=== PATIENT | female | born 1960 | race Caucasian/White ===

== ENCOUNTER 2016-05-26 07:02 | Inpatient (IN) | payer BC ==
[~2016-05-26] VITALS: Ht 162.6 cm; Wt 68.9 kg
[2016-05-26] MEDS ORDERED: VENL75CA47 (07:19)
[2016-05-26] MEDS ORDERED: ATEN50TA2 (07:19)
[2016-05-26] MEDS ORDERED: SUMA25TA3 (07:19)
[2016-05-26] MEDS ORDERED: LISI40TAB (07:19)
[2016-05-26] MEDS ORDERED: CHLO125TA (07:19)
[2016-05-26] MEDS ORDERED: HYDR-3713 (07:19)
[2016-05-26] MEDS ORDERED: TRIC145T (07:19)
[2016-05-26] MEDS ORDERED: PREM.6256 (07:19)
[2016-05-26] MEDS ORDERED: ALEN70TA39 (07:19)
[2016-05-26] MEDS ORDERED: ZANA4CAP (07:19)
[2016-05-26] MEDS ORDERED: ATOR1TAB21 (07:19)
[2016-05-26] MEDS ORDERED: NS 1,000 ML IV SCH (07:35)
[2016-05-26] MEDS ORDERED: ONDANSETRON 4MG/2ML VIAL (J2405) IV ONE (07:45)
[2016-05-26] MEDS: MORPHINE 4 MG/ML 1ML SYRINGE IV PRN ×2 (08:12→11:15)
[2016-05-26 08:15] LABS: BASO % 0.1 % (0.0-1.0); EOS # 0.1 K/mm3 (0.0-0.50); EOS % 0.5 % (0.0-3.0); LARGE UNSTAINED CELL # 0.1 K/mm3 (0.0-0.4); LARGE UNSTAINED CELL % 0.6 % (0.0-4.0); LYMPH # 1.3 K/mm3 (1.5-4.5); MEAN CORPUSCULAR HEMOGLOBIN 29.3 pg (27.0-33.0); MEAN CORPUSCULAR HGB CONC 33.1 g/dl (32.0-36.5); MEAN CORPUSCULAR VOLUME 88.5 fl (80.0-96.0); MONO # 0.4 K/mm3 (0.0-0.8); MONO % 3.4 % (0.0-5.0); NEUTROPHILS # 10.5 K/mm3 (1.8-7.7); NEUTROPHILS % 85.4 % (36.0-66.0); PLATELET COUNT, AUTOMATED 469 k/mm3 (150-450); RED CELL DISTRIBUTION WIDTH 13.8 % (11.5-14.5); WHITE BLOOD COUNT 12.3 K/mm3 (4.0-10.0)
[2016-05-26 08:33] LABS: ALBUMIN 3.9 GM/DL (3.2-5.2); ALBUMIN/GLOBULIN RATIO 0.95 (1.00-1.93); BILIRUBIN,DIRECT 0.3 MG/DL (0.0-0.2); BILIRUBIN,TOTAL 0.8 MG/DL (0.2-1.0); CALCIUM LEVEL 8.7 MG/DL (8.5-10.1); CREATININE FOR GFR 1.03 MG/DL (0.55-1.02); GLOMERULAR FILTRATION RATE 58.6 (>51); POTASSIUM SERUM 3.4 MEQ/L (3.5-5.1)
[2016-05-26] MEDS ORDERED: ISOVUE-370 76% 100ML VIAL (Q9967) As Ordered ONE (08:56)
--- NOTE | 2016-05-26 09:41 | REP ---
CT study of the abdomen and pelvis with IV but without oral contrast: History: Abdominal pain. CT contrast dose: 100 mL of Isovue [address] findings: Preliminary digital medical record technician radiograph is unremarkable. The lung bases are free of infiltrate. There is some linear fibrosis versus discoid atelectasis in the lingula. No pleural effusion is seen. There is mild to moderate diffuse fatty infiltration of the liver. There is a 9 mm low density area in the left lobe of the liver compatible with a cyst. No other focal liver lesion is seen. The liver is at the upper range of normal in size with a craniocaudal span of 16.1 cm. The spleen is normal in appearance. No adrenal lesion is seen. No pancreatic abnormalities observed. Gallbladder is unremarkable. The kidneys enhance symmetrically are morphologically intact. Small and large intestinal bowel loops are normal in the upper abdomen. Pelvic images demonstrate an inflammatory process in the right lower quadrant surrounding the appendix which is enlarged. There is periappendiceal inflammation. There is a small quantity of fluid in the right pericolic gutter. No abscess or free air. Findings are compatible with acute appendicitis. There is no visible appendicolith. No uterine or adnexal abnormality is appreciated. The inflammation does extend down to the level of the ovary on the right side. Urinary bladder is intact. No acute bony abnormality is seen. There is perineural cyst formation in the body of the sacrum with expansion and remodeling of the sacral canal as a result as a normal variant. 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 Impression: CT findings consistent with acute appendicitis. No free air or abscess. Periappendiceal inflammation and a small quantity of a right pericolic gutter fluid are noted. Signed by Favio Garcia MD 05/26/2016 10:18 A
[2016-05-26] MEDS ORDERED: MORPHINE 4 MG/ML 1ML SYRINGE IV ONE (09:45)
[2016-05-26] MEDS ORDERED: PIPERACILLIN/TAZOBACTAM SOD 3.375 GM in D5W MINI-BAG PLUS 50 ML IV ONE (09:45)
[2016-05-26] MEDS ORDERED: ALEN70TA39 PO (10:16)
[2016-05-26] MEDS ORDERED: NORC5TAB PO (10:16)
[2016-05-26] MEDS ORDERED: ATEN50TA2 PO (10:16)
[2016-05-26] MEDS ORDERED: LISI40TAB PO (10:19)
[2016-05-26] MEDS ORDERED: TRIC145T PO (10:19)
[2016-05-26] MEDS ORDERED: CHLO125TA PO (10:19)
[2016-05-26] MEDS ORDERED: PREM.6256 PO (10:19)
[2016-05-26] MEDS ORDERED: VENL75TA3 PO (10:19)
[2016-05-26] MEDS ORDERED: SUMA25TA3 PO (10:19)
[2016-05-26] MEDS ORDERED: ATOR1TAB21 PO (10:19)
[2016-05-26] MEDS ORDERED: BIOT10005 PO (10:20)
[2016-05-26] MEDS ORDERED: VITMTA PO (10:20)
[2016-05-26] MEDS ORDERED: FISH1000 PO (10:20)
[2016-05-26] MEDS ORDERED: BUPIVACAINE HCL 0.25% 30 ML VIAL As Ordered ONE (13:06)
[2016-05-26] MEDS ORDERED: LR 1,000 ML IV SCH ×2 (13:45→16:00)
[2016-05-26 14:00] VITALS: BP 142/76
[2016-05-26] MEDS ORDERED: PIPERACILLIN/TAZOBACTAM SOD 2.25 GM in D5W MINI-BAG PLUS 50 ML IV ONE (14:00)
[2016-05-26] MEDS ORDERED: NEOSTIGMINE 1MG/ML 5 ML SYRINGE (J2710) As Ordered ONE (14:29)
[2016-05-26] MEDS ORDERED: MIDAZOLAM INJ 2 MG/2 ML VIAL (J2250) As Ordered ONE (14:29)
[2016-05-26] MEDS ORDERED: dexameTHASONE 4 MG/ML 1ML VIAL (J1100) As Ordered ONE (14:29)
[2016-05-26] MEDS ORDERED: GLYCOPYRROLATE INJ 0.2 MG/ML 2 ML VIAL As Ordered ONE (14:29)
[2016-05-26] MEDS ORDERED: LIDOCAINE 2% INJ 100 MG/5 ML SDV (FOR ANES.) As Ordered ONE (14:29)
[2016-05-26] MEDS ORDERED: LABETALOL HCL 100 MG/20 ML VIAL As Ordered ONE (14:29)
[2016-05-26] MEDS ORDERED: KETOROLAC 60 MG/2 ML VIAL (J1885) As Ordered ONE (14:29)
[2016-05-26] MEDS ORDERED: PROPOFOL 200 MG/20 ML VIAL As Ordered ONE (14:29)
[2016-05-26] MEDS ORDERED: ONDANSETRON 4MG/2ML VIAL (J2405) As Ordered ONE (14:29)
[2016-05-26] MEDS ORDERED: ROCURONIUM BROMIDE 50 MG/5 ML VIAL As Ordered ONE ×2 (14:29→15:07)
[2016-05-26] MEDS ORDERED: fentaNYL 250 MCG/5 ML INJECTION (J3010) As Ordered ONE (14:29)
[2016-05-26] MEDS ORDERED: fentaNYL 100 MCG/2 ML INJECTION (J3010) As Ordered ONE (15:10)
[2016-05-26] MEDS ORDERED: KETOROLAC 30 MG/ML VIAL (J1885) As Ordered ONE (15:56)
[2016-05-26] MEDS: LR 1,000 ML IV SCH (16:00)
[2016-05-26] MEDS ORDERED: fentaNYL 100 MCG/2 ML INJECTION (J3010) IV PRN (16:00)
[2016-05-26] MEDS ORDERED: ONDANSETRON 4MG/2ML VIAL (J2405) IV PRN ×2 (16:00→16:15)
[2016-05-26] MEDS ORDERED: PERCOCET 5MG/325MG TAB PO PRN (16:00)
[2016-05-26] MEDS: KETOROLAC 30 MG/ML VIAL (J1885) IV PRN ×2 (16:03→16:50)
[2016-05-26] MEDS ORDERED: ACETAMINOPHEN TAB 650MG DOSE (2X325MG) PO PRN (16:15)
[2016-05-26] MEDS ORDERED: NORCO, ANEXSIA 5/325MG TABLET (HYDROcodone/ACETAMINOPHEN) PO PRN (16:15)
[2016-05-26] MEDS: NORCO, ANEXSIA 5/325MG TABLET (HYDROcodone/ACETAMINOPHEN) PO PRN (17:43)
[2016-05-26] MEDS: PIPERACILLIN/TAZOBACTAM SOD 3.375 GM in D5W MINI-BAG PLUS 50 ML IV SCH (20:21)
[2016-05-26] MEDS: MORPHINE 2 MG/ML 1ML SYRINGE IV PRN (20:21)
[2016-05-26 22:00] VITALS: BP 124/66
[2016-05-26] MEDS: LISINOPRIL 40 MG TAB PO SCH (22:05)
[2016-05-26] MEDS: ATENOLOL 25 MG TAB PO SCH (22:05)
[2016-05-27] MEDS: ENOXAPARIN 40 MG/0.4 ML SYRINGE (J1650) SC SCH (00:47)
[2016-05-27 02:00] VITALS: BP 108/62
[2016-05-27] MEDS: LR 1,000 ML IV SCH ×2 (02:00→10:37)
[2016-05-27] MEDS: KETOROLAC 30 MG/ML VIAL (J1885) IV PRN ×2 (02:31→09:09)
[2016-05-27] MEDS: PIPERACILLIN/TAZOBACTAM SOD 3.375 GM in D5W MINI-BAG PLUS 50 ML IV SCH ×4 (02:32→20:26)
[2016-05-27 06:00] VITALS: BP 102/50
[2016-05-27 06:54] LABS: BASO % 0.1 % (0.0-1.0); EOS # 0.1 K/mm3 (0.0-0.50); EOS % 0.9 % (0.0-3.0); LARGE UNSTAINED CELL # 0.1 K/mm3 (0.0-0.4); LARGE UNSTAINED CELL % 1.2 % (0.0-4.0); LYMPH # 1.6 K/mm3 (1.5-4.5); LYMPH % 14.6 % (24.0-44.0); MEAN CORPUSCULAR HEMOGLOBIN 29.3 pg (27.0-33.0); MEAN CORPUSCULAR HGB CONC 33.6 g/dl (32.0-36.5); MEAN CORPUSCULAR VOLUME 87.1 fl (80.0-96.0); MONO # 0.3 K/mm3 (0.0-0.8); MONO % 3.3 % (0.0-5.0); NEUTROPHILS # 8.1 K/mm3 (1.8-7.7); PLATELET COUNT, AUTOMATED 447 k/mm3 (150-450); RED CELL DISTRIBUTION WIDTH 13.7 % (11.5-14.5); WHITE BLOOD COUNT 10.2 K/mm3 (4.0-10.0)
[2016-05-27 07:06] LABS: CALCIUM LEVEL 8.1 MG/DL (8.5-10.1); CREATININE FOR GFR 1.09 MG/DL (0.55-1.02); GLOMERULAR FILTRATION RATE 54.9 (>51); POTASSIUM SERUM 3.5 MEQ/L (3.5-5.1)
[2016-05-27] MEDS: NORCO, ANEXSIA 5/325MG TABLET (HYDROcodone/ACETAMINOPHEN) PO PRN ×4 (07:57→21:53)
[2016-05-27] MEDS: MORPHINE 2 MG/ML 1ML SYRINGE IV PRN ×3 (11:06→21:20)
[2016-05-27 14:00] VITALS: BP 133/62
[2016-05-27 16:25] VITALS: BP 137/79
[2016-05-27 20:00] VITALS: BP 138/76
[2016-05-27 20:27] VITALS: BP 138/76
[2016-05-27] MEDS: LISINOPRIL 40 MG TAB PO SCH (20:27)
[2016-05-27] MEDS: ATENOLOL 25 MG TAB PO SCH (20:27)
[2016-05-28] VITALS: BP 98/57
[2016-05-28] MEDS: PIPERACILLIN/TAZOBACTAM SOD 3.375 GM in D5W MINI-BAG PLUS 50 ML IV SCH ×3 (01:29→14:20)
[2016-05-28] MEDS: ENOXAPARIN 40 MG/0.4 ML SYRINGE (J1650) SC SCH (01:29)
[2016-05-28] MEDS: NORCO, ANEXSIA 5/325MG TABLET (HYDROcodone/ACETAMINOPHEN) PO PRN ×3 (02:33→16:11)
[2016-05-28 04:00] VITALS: BP 136/71
[2016-05-28 07:01] LABS: BASO % 0.3 % (0.0-1.0); EOS # 0.2 K/mm3 (0.0-0.50); LARGE UNSTAINED CELL # 0.1 K/mm3 (0.0-0.4); LARGE UNSTAINED CELL % 2.2 % (0.0-4.0); LYMPH # 2.2 K/mm3 (1.5-4.5); LYMPH % 36.2 % (24.0-44.0); MEAN CORPUSCULAR HEMOGLOBIN 28.5 pg (27.0-33.0); MEAN CORPUSCULAR HGB CONC 33.5 g/dl (32.0-36.5); MEAN CORPUSCULAR VOLUME 85.3 fl (80.0-96.0); MONO # 0.3 K/mm3 (0.0-0.8); MONO % 4.8 % (0.0-5.0); NEUTROPHILS # 3.2 K/mm3 (1.8-7.7); NEUTROPHILS % 52.5 % (36.0-66.0); PLATELET COUNT, AUTOMATED 456 k/mm3 (150-450); RED CELL DISTRIBUTION WIDTH 13.6 % (11.5-14.5); WHITE BLOOD COUNT 6.1 K/mm3 (4.0-10.0)
[2016-05-28 08:00] VITALS: BP 128/68
--- NOTE | 2016-05-28 08:47 | RO ---
DATE OF PROCEDURE: 05/26/2016 PREOPERATIVE DIAGNOSIS: Appendicitis with probable perforation. POSTOPERATIVE DIAGNOSIS: Perforated appendicitis with abscess. PROCEDURE PERFORMED: Laparoscopic appendectomy. SURGEON: Dr. Spencer Sauceda ANESTHESIA: General. INDICATIONS FOR PROCEDURE: The patient is a 56-year-old woman who presented to the emergency department with a history of mid to lower abdominal pain. This had become acutely worse on the morning of the . She was seen in the emergency department where she was found to have a white blood cell count of approximately 12,000 with a left shift. She had a CT scan obtained which showed some free fluid in the lower abdomen and pelvis with changes consistent with appendicitis. She had fairly diffuse tenderness across the lower quadrants, though the right may have been somewhat worse than the left. She has appendicitis, possibly perforated, and is now for laparoscopic appendectomy. DESCRIPTION OF PROCEDURE: The patient was placed on the operating table in the supine position. She was placed under general endotracheal anesthesia. The patient's abdomen was prepped and draped in a sterile fashion. 0.25% Marcaine was infiltrated at her trocar sites. A short supraumbilical midline incision was made and deepened through the subcutaneous tissues and fascia. The peritoneum was opened bluntly. On opening the peritoneum, there appeared to be a small amount of turbid fluid present and anaerobic and aerobic swabs were obtained for culture and Gram stain. A Radha cannula was inserted and the abdomen was insufflated with carbon dioxide gas. The laparoscope was placed. Initial examination showed some free fluid lateral to the right lobe of the liver. This appeared to be cloudy and yellowish in color. There was also some exudate noted in the right lower quadrant at the lateral abdominal wall. There were some filmy inflammatory adhesions between some omentum and the anterolateral abdominal wall. A 5 mm trocar was placed in the low midline and a second 5 mm trocar was placed in the left lower quadrant. Graspers were inserted. The patient was tilted to a Trendelenburg position and rolled to the left. The inflammatory adhesions in the lower abdomen were broken apart using the graspers. A small abscess was identified just inferior to the cecum. This was quite small, probably no more than 2 mL of purulence were released. This was suctioned and the area irrigated using the suction glaze carrier. As additional adhesions were broken apart and the abscess opened, the inflamed appendix was identified coursing inferiorly from the cecum toward the pelvic brim. The inflammatory attachments were broken apart bluntly and the appendix elevated. The mesoappendix was divided using the electrocautery with care to cauterize any vessels. The base of the appendix at its juncture with the cecum was clearly identified and cleared of overlying fibrofatty tissue. The appendix was removed using a firing of an endoscopic 45 mm linear cutter stapler with a green load. The appendix was placed in an Endopouch. The right lower quadrant was copiously irrigated. The patient was then tilted to a reverse Trendelenburg position and the fluid around the liver and in the upper abdomen in the subhepatic space was all irrigated till clear. The fluid drained toward the pelvis and this was all then removed with the suction. The patient was then tilted to a Trendelenburg position to allow better clearing of the fluid from the pelvis. Once the irrigation fluid had all been returned and there was no evidence of any residual fluid, the patient was placed supine. The abdomen was deflated and the trocars were removed. The appendix was recovered through the Shoemaker site. The fascia at the Shoemaker site was closed with interrupted simple sutures of #2-0 Vicryl. The skin incisions were closed with #5-0 Vicryl and Steri-Strips. Light dressings were applied. The patient tolerated the procedure well without apparent complication. She was awakened in the operating room, extubated and moved to the recovery room in stable condition. FIORELLA
[2016-05-28] MEDS: MORPHINE 2 MG/ML 1ML SYRINGE IV PRN (09:55)
[2016-05-28 12:00] VITALS: BP 154/88
[2016-05-28 16:00] VITALS: BP 160/84
[2016-05-28] MEDS ORDERED: NORCOTAB PO (19:30)
[2016-05-28] MEDS ORDERED: METR500T10 PO (19:30)
[2016-05-28] MEDS ORDERED: CIPR500T3 PO (19:30)
[2016-05-28 20:00] VITALS: BP 158/73
== END 2016-05-28 20:25 | disposition home or self-care (01) | DRG 225 ==
LOC: M ED 08:29 → M SDC 12:49 → M ED INP 12:50 → M MS5PR 12:50 → M PED 05-27 16:25
PROVIDERS: ADMIT Surgery; ATTEND Surgery
PROC: 0DTJ4ZZ Resection of Appendix, Percutaneous Endoscopic Approach (ICD-10-PCS; principal; 2016-05-26 12:54)
DX: K35.3 Acute appendicitis with localized peritonitis (principal); I10 Essential (primary) hypertension; E78.00 Pure hypercholesterolemia, unspecified; G43.909 Migraine, unspecified, not intractable, without status migrainosus; K59.00 Constipation, unspecified; M54.9 Dorsalgia, unspecified; F32.9 Major depressive disorder, single episode, unspecified; Z79.891 Long term (current) use of opiate analgesic; Z88.5 Allergy status to narcotic agent; Z91.048 Other nonmedicinal substance allergy status; Z87.891 Personal history of nicotine dependence; Z79.899 Other long term (current) drug therapy

== ENCOUNTER → 2016-08-07 | Outpatient (REF) | payer BC ==
[~2016-08-07] MED LIST: ALEN70TA39; ALEN70TA39 PO; ATEN50TA2; ATEN50TA2 PO; ATOR1TAB21; ATOR1TAB21 PO; BIOT10005 PO; CHLO125TA; CHLO125TA PO; CIPR500T3 PO; FISH1000 PO; HYDR-3713; LISI40TAB; LISI40TAB PO; METR500T10 PO; NORC1TAB4 PO; NORCOTAB PO; PREM.6256; PREM.6256 PO; SUMA25TA3; SUMA25TA3 PO; TRIC145T; TRIC145T PO; VENL75CA47; VENL75TA3 PO; VITMTA PO; ZANA4CAP
[2016-08-07 17:31] LABS: BLOOD UREA NITROGEN 11 MG/DL (7-18); CHOLESTEROL LEVEL 143 MG/DL (<200); GLOMERULAR FILTRATION RATE > 60.0 (>51); TRIGLYCERIDES LEVEL 125 MG/DL (<150)
== END ==
LOC: M SFHCCLAY 10:31
PROVIDERS: ATTEND Nurse Practitioner Family
DX: M54.9 Dorsalgia, unspecified (principal); E78.4 Other hyperlipidemia; E55.9 Vitamin D deficiency, unspecified

== ENCOUNTER → 2016-12-18 | Outpatient (REF) | payer BC ==
[~2016-12-18] MED LIST changes: -BIOT10005 PO; +BIOT10008 PO; +METR1TAB66 PO; -METR500T10 PO; -TRIC145T; -TRIC145T PO; +TRIC145T22; +TRIC145T22 PO
== END ==
LOC: M SFHCCLAY 09:08
PROVIDERS: ATTEND Nurse Practitioner Family
DX: E78.4 Other hyperlipidemia (principal); E55.9 Vitamin D deficiency, unspecified

== ENCOUNTER → 2017-03-26 | Outpatient (REF) | payer BC ==
[2017-03-26 11:48] LABS: HEMATOCRIT 35.6 % (36.0-47.0); MEAN CORPUSCULAR HEMOGLOBIN 28.8 pg (27.0-33.0); MEAN CORPUSCULAR HGB CONC 33.7 g/dl (32.0-36.5); MEAN CORPUSCULAR VOLUME 85.6 fl (80.0-96.0); PLATELET COUNT, AUTOMATED 502 10^3/uL (150-450); RED BLOOD COUNT 4.16 10^6/uL (4.00-5.40); RED CELL DISTRIBUTION WIDTH 14.8 % (11.5-14.5); WHITE BLOOD COUNT 7.5 10^3/uL (4.0-10.0)
[2017-03-26 12:30] LABS: ALBUMIN 4.3 GM/DL (3.2-5.2); ALBUMIN/GLOBULIN RATIO 1.43 (1.00-1.93); ALKALINE PHOSPHATASE 34 U/L (45-117); ALT/SGPT 17 U/L (12-78); ANION GAP 10 MEQ/L (8-16); AST/SGOT 14 U/L (7-37); BILIRUBIN,TOTAL 0.4 MG/DL (0.2-1.0); BLOOD UREA NITROGEN 13 MG/DL (7-18); CALCIUM LEVEL 9.1 MG/DL (8.5-10.1); CARBON DIOXIDE LEVEL 24 MEQ/L (21-32); CHLORIDE LEVEL 106 MEQ/L (98-107); CHOLESTEROL LEVEL 152 MG/DL (<200); CHOLESTEROL RISK RATIO 4.108 (<5); CREATININE FOR GFR 1.08 MG/DL (0.55-1.02); GLOMERULAR FILTRATION RATE 55.3 (>51); GLUCOSE, FASTING 98 MG/DL (70-105); HDL CHOLESTEROL 37 MG/DL (>40); LDL CHOLESTEROL 83.6 MG/DL (<100); NON-HDL-C 115 MG/DL; SODIUM LEVEL 140 MEQ/L (136-145); TOTAL PROTEIN 7.3 GM/DL (6.4-8.2); TRIGLYCERIDES LEVEL 157 MG/DL (<150)
[2017-03-26 13:31] LABS: TOTAL 25(OH) VITAMIN D 30.8 NG/ML (30.0-100.0)
== END ==
LOC: M SFHCCLAY 09:38
DX: I10 Essential (primary) hypertension (principal); E78.4 Other hyperlipidemia; E55.9 Vitamin D deficiency, unspecified
CPT/HCPCS: 80053

== ENCOUNTER → 2018-04-02 | Outpatient (REF) | payer BC ==
[~2018-04-02] MED LIST changes: -ALEN70TA39; -ALEN70TA39 PO; +ALEN70TA57; +ALEN70TA57 PO; +LISI40TA; +LISI40TA PO; -LISI40TAB; -LISI40TAB PO; +METR-201 PO; -METR1TAB66 PO
[2018-04-02 13:18] LABS: HEMATOCRIT 36.9 % (36.0-47.0); HEMOGLOBIN 12.4 g/dl (12.0-15.5); MEAN CORPUSCULAR HEMOGLOBIN 28.6 pg (27.0-33.0); MEAN CORPUSCULAR HGB CONC 33.6 g/dl (32.0-36.5); PLATELET COUNT, AUTOMATED 468 10^3/uL (150-450); RED BLOOD COUNT 4.34 10^6/uL (4.00-5.40); WHITE BLOOD COUNT 6.5 10^3/uL (4.0-10.0)
[2018-04-02 13:32] LABS: CALCIUM LEVEL 9.4 MG/DL (8.8-10.2); CREATININE FOR GFR 1.1 MG/DL (0.55-1.30); GLOMERULAR FILTRATION RATE 53.9 (>45); POTASSIUM SERUM 3.4 MEQ/L (3.5-5.1)
[2018-04-02 13:33] LABS: ALBUMIN 3.8 GM/DL (3.2-5.2); BILIRUBIN,TOTAL 0.3 MG/DL (0.2-1.0); CHOLESTEROL RISK RATIO 4.413 (<5); THYROID STIMULATING HORMONE 1.42 uIU/ML (0.358-3.740); TOTAL PROTEIN 6.9 GM/DL (6.4-8.2)
== END ==
LOC: M SFHCCLAY 07:05
PROVIDERS: ATTEND Nurse Practitioner Family
DX: I10 Essential (primary) hypertension (principal); E78.49 Other hyperlipidemia; F32.9 Major depressive disorder, single episode, unspecified; E55.9 Vitamin D deficiency, unspecified; Z79.01 Long term (current) use of anticoagulants

== ENCOUNTER → 2019-05-19 | Outpatient (REF) | payer BC ==
[~2019-05-19] MED LIST changes: -ALEN70TA57; -ALEN70TA57 PO; +ALEN70TA74; +ALEN70TA74 PO; +HYDR-3715 PO; -METR-201 PO; +METR-265 PO; -NORC1TAB4 PO; +NORC1TAB7 PO; -NORCOTAB PO; +VENL-65 PO; -VENL75TA3 PO
[2019-05-19 16:26] LABS: HEMATOCRIT 36.7 % (36.0-47.0); HEMOGLOBIN 12.4 g/dl (12.0-15.5); MEAN CORPUSCULAR HEMOGLOBIN 29.3 pg (27.0-33.0); MEAN CORPUSCULAR HGB CONC 33.8 g/dl (32.0-36.5); MEAN CORPUSCULAR VOLUME 86.8 fl (80.0-96.0); PLATELET COUNT, AUTOMATED 432 10^3/uL (150-450); RED BLOOD COUNT 4.23 10^6/uL (4.00-5.40); WHITE BLOOD COUNT 6.2 10^3/uL (4.0-10.0)
[2019-05-19 16:41] LABS: ALBUMIN 4.2 GM/DL (3.2-5.2); ALT/SGPT 17 U/L (12-78); BILIRUBIN,TOTAL 0.3 MG/DL (0.2-1.0); BLOOD UREA NITROGEN 16 MG/DL (7-18); CALCIUM LEVEL 9.2 MG/DL (8.8-10.2); CARBON DIOXIDE LEVEL 28 MEQ/L (21-32); CHLORIDE LEVEL 105 MEQ/L (98-107); CHOLESTEROL LEVEL 140 MG/DL (<200); CHOLESTEROL RISK RATIO 4.242 (<5); CREATININE FOR GFR 0.98 MG/DL (0.55-1.30); GLOMERULAR FILTRATION RATE > 60.0 (>45); GLUCOSE, FASTING 103 MG/DL (70-100); HDL CHOLESTEROL 33 MG/DL (>40); LDL CHOLESTEROL 84 MG/DL (<100); NON-HDL-C 107 MG/DL; SODIUM LEVEL 140 MEQ/L (136-145); TOTAL PROTEIN 7.1 GM/DL (6.4-8.2); TRIGLYCERIDES LEVEL 117 MG/DL (<150)
== END ==
LOC: M SFHCCLAY 10:06
PROVIDERS: ATTEND Nurse Practitioner Family
DX: E78.49 Other hyperlipidemia (principal); I10 Essential (primary) hypertension; E55.9 Vitamin D deficiency, unspecified

== ENCOUNTER → 2020-07-19 | Outpatient (REF) | payer BC ==
[~2020-07-19] MED LIST changes: -ALEN70TA74; -ALEN70TA74 PO; +ALEN70TA82; +ALEN70TA82 PO; -LISI40TA; -LISI40TA PO; +LISI40TA4; +LISI40TA4 PO
[2020-07-19 11:57] LABS: HEMATOCRIT 37.6 % (36.0-47.0); HEMOGLOBIN 12.2 g/dl (12.0-15.5); MEAN CORPUSCULAR HEMOGLOBIN 28.6 pg (27.0-33.0); MEAN CORPUSCULAR HGB CONC 32.4 g/dl (32.0-36.5); MEAN CORPUSCULAR VOLUME 88.1 fl (80.0-96.0); PLATELET COUNT, AUTOMATED 412 10^3/uL (150-450); RED BLOOD COUNT 4.27 10^6/uL (4.00-5.40); WHITE BLOOD COUNT 4.7 10^3/uL (4.0-10.0)
[2020-07-19 12:15] LABS: ALT/SGPT 13 U/L (12-78); BILIRUBIN,TOTAL 0.3 MG/DL (0.2-1.0); BLOOD UREA NITROGEN 15 MG/DL (7-18); CALCIUM LEVEL 9.2 MG/DL (8.8-10.2); CARBON DIOXIDE LEVEL 27 MEQ/L (21-32); CHLORIDE LEVEL 108 MEQ/L (98-107); CHOLESTEROL LEVEL 180 MG/DL (<200); CREATININE FOR GFR 0.77 MG/DL (0.55-1.30); GLOMERULAR FILTRATION RATE > 60.0 (>45); GLUCOSE, FASTING 99 MG/DL (70-100); HDL CHOLESTEROL 48 MG/DL (>40); LDL CHOLESTEROL 99 MG/DL (<100); NON-HDL-C 132 MG/DL; SODIUM LEVEL 141 MEQ/L (136-145); TOTAL 25(OH) VITAMIN D 13.9 NG/ML (30.0-100.0); TOTAL PROTEIN 6.9 GM/DL (6.4-8.2); TRIGLYCERIDES LEVEL 167 MG/DL (<150)
== END ==
LOC: M SFHCCLAY 08:33
PROVIDERS: ATTEND Nurse Practitioner Family
DX: I10 Essential (primary) hypertension (principal); E78.5 Hyperlipidemia, unspecified; E55.9 Vitamin D deficiency, unspecified

== ENCOUNTER → 2021-01-25 | Outpatient (REF) | payer BC ==
[2021-01-25 11:57] LABS: BLOOD UREA NITROGEN 17 MG/DL (7-18); CALCIUM LEVEL 9.5 MG/DL (8.8-10.2); CARBON DIOXIDE LEVEL 25 MEQ/L (21-32); CHLORIDE LEVEL 105 MEQ/L (98-107); CREATININE FOR GFR 0.94 MG/DL (0.55-1.30); GLOMERULAR FILTRATION RATE > 60.0 (>45); GLUCOSE, FASTING 105 MG/DL (70-100); POTASSIUM SERUM 4.5 MEQ/L (3.5-5.1); SODIUM LEVEL 139 MEQ/L (136-145)
[2021-01-25 12:00] LABS: TOTAL 25(OH) VITAMIN D 81.9 NG/ML (30.0-100.0)
== END ==
LOC: M SFHCCLAY 08:08
PROVIDERS: ATTEND Family Medicine
DX: I11.9 Hypertensive heart disease without heart failure (principal); E55.9 Vitamin D deficiency, unspecified

== ENCOUNTER → 2021-08-29 | Outpatient (CLI) | payer BC | LOC: M RAD 09:23 | PROVIDERS: ATTEND Family Medicine | DX: K76.0 Fatty (change of) liver, not elsewhere classified (principal); K76.89 Other specified diseases of liver ==

== ENCOUNTER → 2021-09-01 | Outpatient (REF) | payer BC ==
[2021-09-01 11:59] LABS: ALT/SGPT 12 U/L (12-78); BILIRUBIN,TOTAL 0.2 MG/DL (0.2-1.0); BLOOD UREA NITROGEN 11 MG/DL (7-18); CALCIUM LEVEL 8.7 MG/DL (8.8-10.2); CARBON DIOXIDE LEVEL 26 MEQ/L (21-32); CHLORIDE LEVEL 109 MEQ/L (98-107); CHOLESTEROL LEVEL 138 MG/DL (<200); CHOLESTEROL RISK RATIO 2.875 (<5); CREATININE FOR GFR 0.83 MG/DL (0.55-1.30); GLOMERULAR FILTRATION RATE > 60.0 (>45); GLUCOSE, FASTING 93 MG/DL (70-100); HDL CHOLESTEROL 48 MG/DL (>40); LDL CHOLESTEROL 72 MG/DL (<100); NON-HDL-C 90 MG/DL; SODIUM LEVEL 141 MEQ/L (136-145); TOTAL PROTEIN 6.8 GM/DL (6.4-8.2); TRIGLYCERIDES LEVEL 90 MG/DL (<150)
== END ==
LOC: M SFHCCLAY 07:55
PROVIDERS: ATTEND Family Medicine
DX: K76.0 Fatty (change of) liver, not elsewhere classified (principal); E78.5 Hyperlipidemia, unspecified; I11.9 Hypertensive heart disease without heart failure

== ENCOUNTER → 2021-09-25 | Outpatient (CLI) | payer BC ==
[~2021-09-25] MED LIST changes: +PROHANCE 279.3MG/ML 15ML VIAL ONE
== END ==
LOC: M PLAIMG 08:32
PROVIDERS: ATTEND Family Medicine
DX: K76.89 Other specified diseases of liver (principal)
CPT/HCPCS: 74183; A9576

== ENCOUNTER → 2022-03-19 | Outpatient (REF) | payer BC ==
[~2022-03-19] MED LIST changes: -PROHANCE 279.3MG/ML 15ML VIAL ONE
== END ==
LOC: M SFHCCLAY 11:17
PROVIDERS: ATTEND Nurse Practitioner Family
DX: Z01.419 Encounter for gynecological examination (general) (routine) without abnormal findings (principal)

== ENCOUNTER → 2022-08-02 | Outpatient (REF) | payer BC ==
[2022-08-02 12:54] LABS: ALKALINE PHOSPHATASE 38 U/L (46-116); ALT/SGPT 23 U/L (7.0-40); AST/SGOT 21 U/L (<34); BILIRUBIN,TOTAL 0.4 MG/DL (0.3-1.2); BLOOD UREA NITROGEN 12 MG/DL (9-23); CALCIUM LEVEL 9.4 MG/DL (8.3-10.6); CARBON DIOXIDE LEVEL 28 MMOL/L (20-31); CHLORIDE LEVEL 104 MMOL/L (98-107); CHOLESTEROL LEVEL 133 MG/DL (<200); CHOLESTEROL RISK RATIO 3.45 (<5); GLOMERULAR FILTRATION RATE > 60.0 (>45); GLUCOSE, FASTING 87 MG/DL (74-106); HDL CHOLESTEROL 38.5 MG/DL (>40); LDL CHOLESTEROL 60.1 MG/DL (<100); NON-HDL-C 94.5 MG/DL; POTASSIUM SERUM 4.1 MMOL/L (3.5-5.1); SODIUM LEVEL 140 MMOL/L (136-145); TOTAL PROTEIN 6.3 G/DL (5.7-8.2); TRIGLYCERIDES LEVEL 172 MG/DL (<150)
[2022-08-02 12:55] LABS: TOTAL 25(OH) VITAMIN D 41.3 NG/ML (20.0-100.0)
== END ==
LOC: M SFHCCLAY 08:44
PROVIDERS: ATTEND Nurse Practitioner Family
DX: F17.211 Nicotine dependence, cigarettes, in remission (principal); K76.0 Fatty (change of) liver, not elsewhere classified; E55.9 Vitamin D deficiency, unspecified; F32.9 Major depressive disorder, single episode, unspecified; M54.9 Dorsalgia, unspecified; I10 Essential (primary) hypertension

== ENCOUNTER → 2023-08-01 | Outpatient (REF) | payer MEDICARE ==
[2023-08-01 18:51] LABS: HEMOGLOBIN A1c 5.4 % (4.0-6.0)
[2023-08-01 19:10] LABS: ALBUMIN 4.3 G/DL (3.2-5.2); ALKALINE PHOSPHATASE 32 U/L (46-116); ALT/SGPT 17 U/L (7.0-40); AST/SGOT 12 U/L (<34); BILIRUBIN,TOTAL 0.5 MG/DL (0.3-1.2); BLOOD UREA NITROGEN 11 MG/DL (9-23); CALCIUM LEVEL 9.6 MG/DL (8.3-10.6); CARBON DIOXIDE LEVEL 28 MMOL/L (20-31); CHLORIDE LEVEL 107 MMOL/L (98-107); CHOLESTEROL LEVEL 157 MG/DL (<200); CHOLESTEROL RISK RATIO 3.42 (<5); CREATININE FOR GFR 0.77 MG/DL (0.55-1.30); GLOMERULAR FILTRATION RATE > 60.0 (>45); GLUCOSE, FASTING 107 MG/DL (74-106); HDL CHOLESTEROL 45.9 MG/DL (>40); LDL CHOLESTEROL 85.9 MG/DL (<100); NON-HDL-C 111.1 MG/DL; SODIUM LEVEL 142 MMOL/L (136-145); TOTAL PROTEIN 6.8 G/DL (5.7-8.2); TRIGLYCERIDES LEVEL 126 MG/DL (<150)
[2023-08-01 19:14] LABS: TOTAL 25(OH) VITAMIN D 41.3 NG/ML (20.0-100.0)
== END ==
LOC: M SFHCCLAY 09:13
PROVIDERS: ATTEND Nurse Practitioner Family
DX: I10 Essential (primary) hypertension (principal); K76.0 Fatty (change of) liver, not elsewhere classified; E55.9 Vitamin D deficiency, unspecified; F32.9 Major depressive disorder, single episode, unspecified; Z13.1 Encounter for screening for diabetes mellitus

== ENCOUNTER → 2024-02-11 | Outpatient (REF) | payer MEDICARE | LOC: M SFHCCLAY 09:31 | PROVIDERS: ATTEND Nurse Practitioner Family | DX: K76.0 Fatty (change of) liver, not elsewhere classified (principal); F17.211 Nicotine dependence, cigarettes, in remission; I10 Essential (primary) hypertension; E55.9 Vitamin D deficiency, unspecified; F32.9 Major depressive disorder, single episode, unspecified; M54.9 Dorsalgia, unspecified ==

== ENCOUNTER → 2024-03-31 | Outpatient (REF) | payer MEDICARE ==
[~2024-03-31] MED LIST changes: +BUTA50TA PO; +CYCL-707 PO; +FENO145T7 PO; +HYDR12.55 PO; +METO50TA7 PO; +SERT50TA29 PO
[2024-03-31 12:19] LABS: ALBUMIN 4.3 G/DL (3.2-5.2); ALKALINE PHOSPHATASE 32 U/L (35-104); ALT/SGPT 14 U/L (7.0-40); AST/SGOT 15 U/L (<34); BILIRUBIN,TOTAL 0.3 MG/DL (0.3-1.2); BLOOD UREA NITROGEN 21 MG/DL (9-23); CALCIUM LEVEL 9.9 MG/DL (8.3-10.6); CARBON DIOXIDE LEVEL 27 MMOL/L (20-31); CHLORIDE LEVEL 105 MMOL/L (98-107); CHOLESTEROL LEVEL 172 MG/DL (<200); CHOLESTEROL RISK RATIO 2.96 (<5); CREATININE FOR GFR 0.76 MG/DL (0.55-1.30); FREE T4 1.31 NG/DL (0.89-1.76); GLOMERULAR FILTRATION RATE > 60.0 (>45); GLUCOSE, FASTING 110 MG/DL (74-106); HDL CHOLESTEROL 58.1 MG/DL (>40); LDL CHOLESTEROL 97.9 MG/DL (<100); NON-HDL-C 113.9 MG/DL; POTASSIUM SERUM 3.7 MMOL/L (3.5-5.1); SODIUM LEVEL 142 MMOL/L (136-145); THYROID STIMULATING HORMONE 1.251 uIU/ML (0.55-4.78); TOTAL 25(OH) VITAMIN D 39.1 NG/ML (20.0-100.0); TOTAL PROTEIN 7.2 G/DL (5.7-8.2); TRIGLYCERIDES LEVEL 80 MG/DL (<150)
[2024-03-31 12:42] LABS: HEMOGLOBIN A1c 5.3 % (4.0-6.0)
== END ==
LOC: M SFHCCLAY 08:23
PROVIDERS: ATTEND Nurse Practitioner Family
DX: K76.0 Fatty (change of) liver, not elsewhere classified (principal); F17.211 Nicotine dependence, cigarettes, in remission; I10 Essential (primary) hypertension; E55.9 Vitamin D deficiency, unspecified; F32.9 Major depressive disorder, single episode, unspecified; M54.9 Dorsalgia, unspecified

== ENCOUNTER 2024-04-16 07:44 | Day surgery (SDC) | payer MEDICARE ==
[~2024-04-16] VITALS: Ht 162.6 cm; Wt 62.1 kg
[~2024-04-16 07:44] MED LIST changes: +BUTACAP78 PO; +D200CAP PO; +DIPH-435 PO; +HYDR-3713 PO; +LIDOCAINE 2% 100MG/5ML SDV (FOR ANES.) As Ordered ONE; +LORA-1041 PO; +METO1TAB87 PO; +THERTAB52 PO; +propofoL 200 MG/20 ML VIAL As Ordered ONE
[2024-04-16 09:17] VITALS: TEMP 96.6
[2024-04-16 09:47] VITALS: BP 117/56; O2SAT 99
== END 2024-04-16 09:48 | disposition home or self-care (01) ==
LOC: M OPP 07:44
PROVIDERS: ATTEND Surgery
DX: Z12.11 Encounter for screening for malignant neoplasm of colon (principal); K57.30 Diverticulosis of large intestine without perforation or abscess without bleeding; Z88.5 Allergy status to narcotic agent; Z91.048 Other nonmedicinal substance allergy status; Z79.891 Long term (current) use of opiate analgesic; Z79.899 Other long term (current) drug therapy; J45.909 Unspecified asthma, uncomplicated; Z87.891 Personal history of nicotine dependence